=== PATIENT | male | born 1990 | race Caucasian/White ===

== ENCOUNTER 2016-11-01 14:53 | Outpatient (CLI) ==
[2015-10-24 09:29] VITALS: BMI 37.8
[2016-11-01 16:07] LABS: BASOPHILS # (AUTO) 0.1 K/uL (0-0.2); BASOPHILS % (AUTO) 0.7 % (0.0-3.0); EOSINOPHILS # (AUTO) 0.4 K/ul (0.0-0.7); EOSINOPHILS % (AUTO) 3.1 % (0.0-7.0); HEMATOCRIT 48.1 % (42.0-52.0); HEMOGLOBIN 16.6 g/dl (14.0-18.0); IMMATURE GRANULOCYTE % (AUTO) 0.9 % (0.0-5.0); LYMPHOCYTES # (AUTO) 2.2 K/uL (0.60-3.4); LYMPHOCYTES % (AUTO) 17.8 (10.0-50.0); MEAN CORPUSCULAR HGB CONC 34.5 (31.8-35.4); MEAN CORPUSCULAR VOLUME 84.1 fl (80.0-94.0); MONOCYTES # (AUTO) 0.8 K/uL (0.4-2.0); MONOCYTES % (AUTO) 6.8 (0-10); NEUTROPHILS # (AUTO) 8.6 K/ul (2.0-6.9); NEUTROPHILS % (AUTO) 70.7; PLATELET COUNT 260 10^3/uL (140-440); RED BLOOD COUNT 5.72 10^6/ul (4.70-6.10); WHITE BLOOD COUNT 12.11 K/ul (4.2-10.2)
[2016-11-01 16:17] LABS: H. PYLORI ANTIBODY NEGATIVE (NEGATIVE); H.PYLORI INTERNAL QC INTERNAL QC VALID
[2016-11-01 16:46] LABS: ALBUMIN/GLOBULIN RATIO 1.29; ANION GAP 15.1; BILIRUBIN,TOTAL 1.2 mg/dL (0.00-1.20); CALCIUM 9.1 mg/dL (8.2-10.2); CHOL/HDL RATIO 4.9 (4.5-6.4); CREATININE 0.9 mg/dL (0.60-1.10); POTASSIUM 4.1 mmol/L (3.5-5.1); TOTAL PROTEIN 7.1 g/dL (6.4-8.2)
== END 2016-11-01 14:54 | disposition home or self-care (01) ==
LOC: LAB 14:53
PROVIDERS: ATTEND Nurse Practitioner Family
DX: K21.9 Gastro-esophageal reflux disease without esophagitis (principal)
CPT/HCPCS: 36415; 80053; 80061; 82150; 83690; 84439; 84443; 85025; 86677

== ENCOUNTER 2017-07-11 15:29 | Outpatient (CLI) ==
[2015-10-24 09:29] VITALS: BMI 37.8
--- NOTE | 2017-07-11 16:02 | DI ---
EXAM: Three views of the left shoulder HISTORY: Pain in left shoulder. COMPARISON: Chest x-ray 10/24/2015 FINDINGS: No acute abnormality or displaced fracture of the left shoulder. The acromioclavicular tejal nt and glenohumeral joint are maintained. There is no lytic or blastic lesion. The soft tissues are normal. IMPRESSION: No acute abnormality or displaced fracture of the left shoulder.
== END 2017-07-11 15:30 | disposition home or self-care (01) ==
LOC: RAD 15:29
PROVIDERS: ATTEND Nurse Practitioner Family
DX: M25.512 Pain in left shoulder (principal)

== ENCOUNTER 2018-03-11 14:07 | Emergency (ER) ==
[2018-03-11 14:12] VITALS: BP 118/84; TEMP 98.6; BMI 35.8
[2018-03-11] MEDS ORDERED: BOOSTRIX IM ONE (14:21)
--- NOTE | 2018-03-11 14:25 | ED.PDOC ---
General ED Provider: Dr. RENETTA RODRIGUEZ Chief Complaint: Laceration Stated Complaint: Patient states that whilehe was carrying furniture he slipped onto a gate and the gate caused and abrassion on the left anterior lower leg. Time Seen by Physician: 14:23 Mode of Arrival: Walk-In Information Source: Patient Exam Limitations: No limitations Primary Care Provider: MAGALY HILL Nursing and Triage Documentation Reviewed and Agree: Yes Does patient meet sepsis criteria?: No System Inflammatory Response Syndrome: Not Applicable Sepsis Protocol: For patient's 13 years and over: Temp is 96.8 and below OR 101 and greater Pulse >90 BPM Resp >20/minute Acutely Altered Mental Status Are patient's symptoms suggestive of a new infection, such as: -Pneumonia -Skin, Soft Tissue -Endocarditis -UTI -Bone, Joint Infection -Implantable Device -Acute Abdominal Infection -Wound Infection -Meningitis -Blood Stream Catheter Infection -Unknown Skin Complaint Exam - Laceration/Lower Ext. Complaint/Exam Location of Injury: Left, Leg Mechanism of Injury: Abrasion Onset/Duration: 2 hours ago Symptoms Are: Still present Initial Severity: Moderate Current Severity: Moderate Aggravating: Movement Alleviating: Compression Associated Signs and Symptoms: Denies: Fever, Chills, Erythema, Numbness, Tingling Lower Extremity Picture: 1 - 4.5 cm skin abrassion Differential Diagnoses: Abrasion Review of Systems - Review Of Systems Constitutional: Reports: No symptoms Eyes: Reports: No symptoms Ears, Nose, Mouth, Throat: Reports: No symptoms Respiratory: Reports: No symptoms Cardiac: Reports: No symptoms GI: Reports: No symptoms : Reports: No symptoms Musculoskeletal: Reports: Muscle pain Skin: Reports: Bruising Neurological: Reports: No symptoms Endocrine: Reports: No symptoms Hematologic/Lymphatic: Reports: No symptoms All Other Systems: Reviewed and Negative Past Medical History - Past Medical History Previously Healthy: Yes Endocrine: Reports: None Cardiovascular: Reports: None Respiratory: Reports: None Hematological: Reports: None Gastrointestinal: Reports: None Genitourinary: Reports: None Neuro/Psych: Reports: None Musculoskeletal: Reports: None Cancer: Reports: None - Surgical History General Surgical History: Reports: Other (EAR SURGERY, neck, spine surgery) - Family History Family History: Reports: Unknown - Social History Smoking Status: Former smoker Hx Substance Use: No Alcohol Screening: None Physical Exam - Physical Exam Appearance: Obese Musculoskeletal: Normal strength Skin: Warm, Dry Neurological: Sensation intact, Motor intact, Reflexes intact, Cranial nerves intact, Alert, Oriented Psychiatric: Affect appropriate, Mood appropriate, Anxious Critical Care Note - Critical Care Note Total Time (mins): 0 Course - Course Orders, Labs, Meds: Orders Category Date Time Status Acetaminophen [Tylenol] MEDS 03/11/18 14:47 Discontinued 1,000 mg PO ONCE STA Diphth,Pertuss(Acell),Tet Vac [Boostrix] MEDS 03/11/18 14:21 Discontinued 0.5 ml IM .ONCE ONE Medications Discontinued Medications Generic Name Dose Route Start Last Admin Trade Name Freq PRN Reason Stop Dose Admin Acetaminophen 1,000 mg 03/11/18 14:47 03/11/18 14:53 Tylenol PO 03/11/18 14:48 1,000 mg ONCE STA Administration Diphtheria/Pertussis/Tetanus Vacc 0.5 ml 03/11/18 14:21 03/11/18 14:27 Boostrix IM 03/11/18 14:22 0.5 ml .ONCE ONE Administration Vital Signs: Temp Pulse Resp BP Pulse Ox 03/11/18 14:55 96 H 03/11/18 14:08 98.6 F 110 H 20 118/84 97 Departure - Departure Time of Disposition: 14:55 Disposition: HOME SELF-CARE Discharge Problem: Abrasion Instructions: Abrasion (ED) Condition: Stable Pt referred to PMD for follow-up: Yes IPMP verified?: No Additional Instructions: Change dressing at least once a day Return if signs of infection is noted Follow up with PCP in 3 days Allergies/Adverse Reactions: Allergies Penicillins Allergy (Severe, Verified 03/11/18 14:12) seizure Home Medications: Ambulatory Orders Lisinopril [Zestril] 20 mg PO DAILY 03/11/18 Simvastatin [Zocor] 10 mg PO BEDTIME 03/11/18 Disposition Discussed With: Patient, Family
[2018-03-11] MEDS ORDERED: TYLENOL PO STA (14:47)
== END 2018-03-11 15:00 | disposition home or self-care (01) ==
LOC: ED 14:07
DX: S80.812A Abrasion, left lower leg, initial encounter (principal); W19.XXXA Unspecified fall, initial encounter
CPT/HCPCS: 90715; 99282

== ENCOUNTER 2018-05-30 17:46 | Emergency (ER) ==
[2018-05-30 17:51] VITALS: BP 163/76; TEMP 101.5; BMI 31.4
== END 2018-05-30 19:02 | disposition left against medical advice (07) ==
LOC: ED 17:46
DX: R06.9 Unspecified abnormalities of breathing (principal); J02.9 Acute pharyngitis, unspecified; R50.9 Fever, unspecified; R05 Cough

== ENCOUNTER 2018-10-03 11:49 | Outpatient (CLI) ==
--- NOTE | 2018-10-03 12:39 | US ---
EXAM: Limited abdominal ultrasound. History: Left lower quadrant abdominal pain. Technique: Multiple sonographic images through the abdomen were obtained. Color duplex Doppler was used to interrogate vascular flow. Findings: No masses, cysts or fluid collections identified. Loops of bowel were seen. The bladder i s not well distended. Impression: No sonographic abnormalities. If symptoms persist, recommend further evaluation with co ntrast enhanced CT
== END 2018-10-03 11:50 | disposition home or self-care (01) ==
LOC: RAD 11:49
PROVIDERS: ATTEND Nurse Practitioner Family
DX: R10.32 Left lower quadrant pain (principal)

== ENCOUNTER 2018-10-05 10:14 | Emergency (ER) ==
[2018-10-05 10:19] VITALS: BP 152/85; TEMP 97.8; BMI 29.0
--- NOTE | 2018-10-05 10:41 | ED.PDOC ---
General ED Provider: Dr. NNAMDI GRAHAM Chief Complaint: Abdominal Pain Stated Complaint: patient c/o pain to RUQ Abdominal pain. Initially was in RUQ , moving from periumbilical region. Nausea and vomiting intially which stopped 3 days ago. He states it started after drinking alcohol. Still nauseatd as well as diarrhea. States he burps and it smells like rotten eggs. Time Seen by Physician: 10:34 Mode of Arrival: Walk-In Information Source: Patient Exam Limitations: No limitations Primary Care Provider: MAURICIO EDGAR Referred to ED by: PCP Nursing and Triage Documentation Reviewed and Agree: Yes Does patient meet sepsis criteria?: No System Inflammatory Response Syndrome: Not Applicable Sepsis Protocol: For patient's 13 years and over: Temp is 96.8 and below OR 101 and greater Pulse >90 BPM Resp >20/minute Acutely Altered Mental Status Are patient's symptoms suggestive of a new infection, such as: -Pneumonia -Skin, Soft Tissue -Endocarditis -UTI -Bone, Joint Infection -Implantable Device -Acute Abdominal Infection -Wound Infection -Meningitis -Blood Stream Catheter Infection -Unknown GI Complaint Exam - Abdominal Pain Complaint/Exam Onset: Sudden Duration: 3 days Symptoms Are: Still present Timing: Intermittent Initial Severity: Moderate Current Severity: Moderate Location of Pain: RUQ Radiates To: Reports: Back (Lt infrascapular region ) Character: Reports: Sharp, Aching Aggravating: Reports: Movement Alleviating: Reports: Rest Associated Signs and Symptoms: Reports: Back pain, Decreased appetite, Vomiting , Diarrhea AAA Risk Factors: Reports: None Cardiac Risk Factors: Reports: None Testicular Torsion Risk Factors: Reports: None Surgical Obstruction Risk Factors: Reports: None Related Surgical History: Reports: None Abdominal Findings: Present: None Differential Diagnoses: Gastroenteritis, Pancreatitis, GB Review of Systems - Review Of Systems Constitutional: Reports: No symptoms Eyes: Reports: No symptoms Ears, Nose, Mouth, Throat: Reports: No symptoms Respiratory: Reports: No symptoms Cardiac: Reports: No symptoms GI: Reports: Diarrhea, Nausea, Vomiting : Reports: No symptoms Musculoskeletal: Reports: No symptoms Skin: Reports: No symptoms Neurological: Reports: No symptoms Endocrine: Reports: No symptoms Hematologic/Lymphatic: Reports: No symptoms All Other Systems: Reviewed and Negative Past Medical History - Past Medical History Previously Healthy: Yes Endocrine: Reports: None Cardiovascular: Reports: None Respiratory: Reports: None Hematological: Reports: None Gastrointestinal: Reports: None Genitourinary: Reports: None Neuro/Psych: Reports: None Musculoskeletal: Reports: None Cancer: Reports: None - Surgical History General Surgical History: Reports: Other (EAR SURGERY, neck, spine surgery) - Family History Family History: Reports: Unknown - Social History Smoking Status: Former smoker Hx Substance Use: No Alcohol Screening: None Physical Exam - Physical Exam Appearance: Well-appearing, Well-nourished, Obese Ill-appearing: Mild Pain Distress: Mild Eyes: MAGGIE, EOMI, Conjunctiva clear ENT: Ears normal, Nose normal, Oropharynx normal Respiratory: Airway patent, Breath sounds clear, Breath sounds equal, Respirations nonlabored Cardiovascular: RRR, Pulses normal, No rub, No murmur GI/: Soft, No masses, Tender, Bowel sounds hypoactive Musculoskeletal: Normal strength, ROM intact, No edema, No calf tenderness Skin: Warm, Dry, Normal color Neurological: Sensation intact, Motor intact, Reflexes intact, Cranial nerves intact, Alert, Oriented Psychiatric: Affect appropriate, Mood appropriate Critical Care Note - Critical Care Note Total Time (mins): 0 Course - Course Hematology/Chemistry: 10/05/18 11:20 10/05/18 11:20 Orders, Labs, Meds: Lab Review 10/05/18 10/05/18 10/05/18 10:45 10:45 11:20 WBC 7.59 RBC 5.47 Hgb 15.7 Hct 45.9 MCV 83.9 MCH 28.7 MCHC 34.2 RDW Coeff of Coni 12.5 Plt Count 238 Neutrophils % (Manual) 48.0 Lymphocytes % (Manual) 36.0 Monocytes % (Manual) 7.0 Reactive Lymphocytes 9.0 H Anisocytosis Not present Sodium Potassium Chloride Carbon Dioxide Anion Gap BUN Creatinine Estimated GFR (MDRD) BUN/Creatinine Ratio Glucose Lactic Acid Calcium Total Bilirubin AST ALT Alkaline Phosphatase Total Protein Albumin Globulin Albumin/Globulin Ratio Amylase Lipase Urine Color Yellow Urine Clarity Clear Urine pH 6.0 Ur Specific [place] >=1.030 Urine Protein Negative Urine Glucose (UA) Negative Urine Ketones Negative Urine Blood Negative Urine Nitrite Negative Urine Bilirubin Negative Urine Urobilinogen 0.2 Ur Leukocyte Esterase Negative Urine Opiates Screen Negative Ur Oxycodone Screen Negative Urine Methadone Screen Negative Ur Propoxyphene Screen Negative Ur Barbiturates Screen Negative U Tricyclic Antidepress Negative Ur Phencyclidine Scrn Negative Ur Amphetamine Screen Negative U Methamphetamines Scrn Negative U Benzodiazepines Scrn Negative Urine Cocaine Screen Negative U Cannabinoids Screen Positive 10/05/18 10/05/18 11:20 11:20 WBC RBC Hgb Hct MCV MCH MCHC RDW Coeff of Coni Plt Count Neutrophils % (Manual) Lymphocytes % (Manual) Monocytes % (Manual) Reactive Lymphocytes Anisocytosis Sodium 141.8 Potassium 4.40 Chloride 106.1 Carbon Dioxide 24.9 Anion Gap 15.20 BUN 10.7 Creatinine 0.88 Estimated GFR (MDRD) 102.00 BUN/Creatinine Ratio 12.15 Glucose 92.3 Lactic Acid 0.52 L Calcium 8.79 Total Bilirubin 0.43 AST 19.8 ALT 28.9 Alkaline Phosphatase 55.0 Total Protein 6.94 Albumin 4.18 Globulin 2.76 Albumin/Globulin Ratio 1.51 Amylase 35.0 Lipase 261.7 Urine Color Urine Clarity Urine pH Ur Specific [place] Urine Protein Urine Glucose (UA) Urine Ketones Urine Blood Urine Nitrite Urine Bilirubin Urine Urobilinogen Ur Leukocyte Esterase Urine Opiates Screen Ur Oxycodone Screen Urine Methadone Screen Ur Propoxyphene Screen Ur Barbiturates Screen U Tricyclic Antidepress Ur Phencyclidine Scrn Ur Amphetamine Screen U Methamphetamines Scrn U Benzodiazepines Scrn Urine Cocaine Screen U Cannabinoids Screen Orders Category Date Time Status EKG-(ED ONLY) Stat CARDIO 10/05/18 10:44 Completed NPO REMINDER: IMAGING ONCE CARE 10/05/18 10:45 Completed IV [ED IV/MEDIPORT/POWERPORT] .ONCE EMERGENCY 10/05/18 10:44 Active AMYLASE Stat LAB 10/05/18 11:20 Completed CBC W/ AUTO DIFF Stat LAB 10/05/18 11:20 Completed CMP [COMPREHENSIVE METABOLIC PANEL] Stat LAB 10/05/18 11:20 Completed HEPATITIS PANEL, ACUTE Stat LAB 10/05/18 11:20 Received LACTIC ACID Stat LAB 10/05/18 11:20 Completed LIPASE Stat LAB 10/05/18 11:20 Completed MANUAL DIFFERENTIAL Stat LAB 10/05/18 11:20 Completed UA [URINALYSIS C & S IF INDICATED] Stat LAB 10/05/18 10:45 Completed URINE DRUG SCREEN (RAPID FOR ED) [DRUG SCREEN, URINE, LAB 10/05/18 10:45 Completed RAPID] Stat 0.9 % Sodium Chloride [Saline Flush] MEDS 10/05/18 10:45 Active 1 syr IVF PRN PRN CT ABDOMEN/PELVIS W CONTRAST Stat RADS 10/05/18 10:45 Completed Medications Generic Name Dose Route Start Last Admin Trade Name Freq PRN Reason Stop Dose Admin Sodium Chloride 1 syr 10/05/18 10:45 Saline Flush IVF PRN PRN To flush IV Vital Signs: Temp Pulse Resp BP Pulse Ox 10/05/18 10:16 97.8 F 65 20 152/85 H 98 Departure - Departure Time of Disposition: 13:00 Disposition: HOME SELF-CARE Discharge Problem: Viral gastroenteritis, Mesenteric adenitis Instructions: Gastroenteritis (ED) Condition: Good Pt referred to PMD for follow-up: Yes IPMP verified?: No Additional Instructions: Begin taking antacids -TUMS or Mylanta Take zantac as prescribed Avoid alcohol advance diet as tolerated Allergies/Adverse Reactions: Allergies Penicillins Adverse Reaction (Verified 10/05/18 10:19) Home Medications: Ambulatory Orders Ranitidine HCl [Zantac] 150 mg PO BIDAC #30 tablet 10/05/18 Disposition Discussed With: Patient
--- NOTE | 2018-10-05 12:33 | CT ---
EXAM: CT of the abdomen pelvis with contrast History: Right upper quadrant abdominal pain. Comparison: Abdominal ultrasound 10/03/2018, CT abdomen pelvis 10/24/2015 Technique: Multiplanar CT images through the abdomen pelvis were obtained following administration o f IV contrast Findings: Lung bases are clear. No acute osseous abnormalities. No gallstones are identified by CT. 1.5 cm well circumscribed enhancing lesion within the right hepa tic lobe. Spleen is unremarkable. Pancreas is within normal limits. Adrenal glands are normal. Th e appendix is normal. Kidneys are within normal limits. A few borderline dilated loops of both larg e and small bowel with mucosal prominence and adjacent bowel hyperemia with several prominent central mesenteric lymph nodes. No bowel obstruction. No bladder wall thickening. Prostate is not enlarge d. No perirectal inflammation. No free air and no ascites. Impression: 1. Mild gastroenterocolitis. No evidence for bowel obstruction. 2. The prominent central mesenteric lymph nodes could be reactive from the enteritis or indicate mes enteric adenitis. 3. 1.5 cm indeterminate enhancing lesion within the right hepatic lobe. Recommend further evaluatio n with non emergent MRI liver mass protocol as an outpatient.
== END 2018-10-05 13:43 | disposition home or self-care (01) ==
LOC: ED 10:14
DX: A08.4 Viral intestinal infection, unspecified (principal); I88.0 Nonspecific mesenteric lymphadenitis
CPT/HCPCS: 36415; 80053; 80074; 80306; 81001; 82150; 83605; 83690; 85007; 85025; 93005; 93010; 99283

== ENCOUNTER 2018-10-16 08:06 | Outpatient (CLI) ==
--- NOTE | 2018-10-16 13:34 | MRI ---
EXAM: MRI abdomen without and with contrast HISTORY: Abdominal pain and liver mass TECHNIQUE: Multiplanar, multisequence without and following the administration of intravenous Dotare m, 20 mL COMPARISON: CT abdomen from 10/05/2018 FINDINGS: The heart size is normal. No pericardial or pleural effusions are appreciated. There is no evidence of hepatic steatosis. There is a small lesion in the right posterior hepatic lo be measuring 1.2 cm with increased T2 signal and early arterial enhancement. No washout is appreciat ed. This fades to background on the delayed images. An additional early hyperenhancing lesion is de tected in the right hepatic lobe measuring 7.1 mm. This fades to background without washout. No oth er hepatic lesions are evident. The gallbladder is free intraluminal filling defects. There is no b iliary dilatation. The spleen has normal size and signal intensity. The adrenal glands have normal signal and morpholog y. The kidneys have normal size and signal. Ureters have normal caliber. The visible intestines huffman ve normal signal caliber without evidence of obstruction or acute inflammation. The abdominal has no rmal caliber and flow signal. No lymphadenopathy or ascites are appreciated. The bone marrow signal intensity is normal. IMPRESSION: 1. 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 2. Otherwise normal.
== END 2018-10-16 08:07 | disposition home or self-care (01) ==
LOC: RAD 08:06
PROVIDERS: ATTEND Nurse Practitioner Family
DX: R10.9 Unspecified abdominal pain (principal)